=== PATIENT | male | born 1975 | race Hispanic/Latino ===

== ENCOUNTER → 2023-03-10 | Day surgery (SDC) | payer OTHER ==
[~2023-03-10] MED LIST: DEXMEDETOMIDINE HCL 200 MCG/2 ML VIAL ONE; DICYCLOMINE HCL10 MG PO; EPHEDRINE SULFATE INJ 50 MG/ML VIAL ONE; LACTATED RINGER'S 1,000 ML ONE; LIDOCAINE HCL 2% LOCAL INJ 5 ML SDV VIAL INJ ONE; LOSARTAN POTAS100 MG PO; PHENYLEPHRINE HCL 1% 10 MG/ML VIAL ONE; PROPOFOL IV EMULSION 10 MG/ML 50 ML VIAL IV ONE
[2023-03-10 11:22] VITALS: TEMP 97
[2023-03-10 11:45] VITALS: BP 113/70; PULSE 71; RESP 18; O2SAT 99
== END | disposition home or self-care (01) ==
LOC: OR 08:57
PROVIDERS: ATTEND Internal Medicine Gastroenterology
DX: Z12.11 Encounter for screening for malignant neoplasm of colon (principal); D12.4 Benign neoplasm of descending colon; K62.1 Rectal polyp; K64.8 Other hemorrhoids; R14.0 Abdominal distension (gaseous); Z71.3 Dietary counseling and surveillance; I10 Essential (primary) hypertension; Z71.89 Other specified counseling; Z79.899 Other long term (current) drug therapy; Z68.32 Body mass index [BMI] 32.0-32.9, adult
CPT/HCPCS: 36415; 45385; 82948; 93005; J2001; J2371; J2704; J7121; 45378; 45380

== ENCOUNTER → 2024-02-12 | Outpatient (REF) | payer OTHER ==
[~2024-02-12] MED LIST changes: -DEXMEDETOMIDINE HCL 200 MCG/2 ML VIAL ONE; -EPHEDRINE SULFATE INJ 50 MG/ML VIAL ONE; +IOPAMIDOL 370 MG/ML 100 ML INFUS..BTL INJ ONE; -LACTATED RINGER'S 1,000 ML ONE; -LIDOCAINE HCL 2% LOCAL INJ 5 ML SDV VIAL INJ ONE; -PHENYLEPHRINE HCL 1% 10 MG/ML VIAL ONE; -PROPOFOL IV EMULSION 10 MG/ML 50 ML VIAL IV ONE; +SODIUM CHLORIDE 0.9% 250ML 250 ML ONE
[2024-02-12 14:21] LABS: CREATININE, SERUM 0.93 mg/dL (0.72-1.25)
== END ==
LOC: CT 13:22
PROVIDERS: ATTEND Urology
DX: R31.0 Gross hematuria (principal)
CPT/HCPCS: 36415; 74178; 82565; 84520; J7050; Q9967